=== PATIENT | female | born 1960 | race Asian ===

== ENCOUNTER → 2020-06-17 12:26 | Outpatient (BNVA) | payer SELFPAY | PROVIDERS: Visit Provider Nurse Practitioner Family | DX: R39.9 Unspecified symptoms and signs involving the genitourinary system (principal); K29.70 Gastritis, unspecified, without bleeding | CPT/HCPCS: 81000 ==

== ENCOUNTER → 2020-07-16 14:27 | Outpatient (BNVA) | payer SELFPAY | PROVIDERS: Visit Provider Emergency Medicine | DX: R10.9 Unspecified abdominal pain (principal) | CPT/HCPCS: 81000 ==

== ENCOUNTER → 2023-06-02 13:44 | Outpatient (BNVA) | payer BC, MEDICAID, SELFPAY | PROVIDERS: Visit Provider Nurse Practitioner | DX: R53.83 Other fatigue (principal); R10.9 Unspecified abdominal pain; N63.20 Unspecified lump in the left breast, unspecified quadrant; Z12.11 Encounter for screening for malignant neoplasm of colon; N39.0 Urinary tract infection, site not specified | CPT/HCPCS: 80053; 81000; 82274; 83036; 84443; 85025; 87086 ==

== ENCOUNTER 2023-06-10 08:37 | Outpatient (CLI) | payer BC, MEDICAID, SELFPAY ==
--- NOTE | 2023-06-10 09:00 | USR_ITS ---
PROCEDURE INFORMATION: Exam: US Duplex Artery or Vein of the Abdominal and/or Reproductive Organs, Limited Liver Exam date and time: 06/10/2023 8:46 AM Clinical indication: Abdominal pain; Generalized; Additional info: R10.9 - unspecified abdominal pain TECHNIQUE: Imaging protocol: Real-time duplex ultrasound scan of the arterial or venous flow with color Doppler flow and spectral waveform analysis with image documentation. Limited Duplex exam focused on the liver and portal venous system. Duplex exam was performed to evaluate for vascular conditions. COMPARISON: No relevant prior studies available. FINDINGS: Portal venous: The portal vein is patent with hepatopetal flow. Spectral waveform demonstrates normal respiratory phasicity. PROCEDURE INFORMATION: Exam: US Abdomen Complete Exam date and time: 06/10/2023 8:46 AM Age: 63 years old Clinical indication: Abdominal pain; Generalized; Additional info: R10.9 - unspecified abdominal pain TECHNIQUE: Imaging protocol: Real-time ultrasound of the abdomen with image documentation. Complete exam. COMPARISON: No relevant prior studies available. FINDINGS: Liver: Normal. No mass. Gallbladder: Normal. No gallstones. There is no gallbladder wall thickening. Biliary ducts: Common bile duct measures 5 mm. No stones. No dilation. Pancreas: Visualized pancreas is unremarkable. Right kidney: Measures 10.1 cm in length. No mass. No hydronephrosis. Left kidney: Measures 10.1 cm in length. No mass. No hydronephrosis. Spleen: Normal. No splenomegaly. Aorta: Normal. No aneurysm. Inferior vena cava: Normal. US/US abdomen complete* [id number] IMPRESSION: Unremarkable duplex of the portal vein. IMPRESSION: No acute findings.
== END 2023-06-10 08:38 | disposition home or self-care (01) ==
LOC: RAD 08:37
PROVIDERS: PCP Nurse Practitioner; Visit Provider Nurse Practitioner
DX: R10.9 Unspecified abdominal pain (principal)
CPT/HCPCS: 76700

== ENCOUNTER 2023-06-22 12:51 | Outpatient (CLI) | payer BC, MEDICAID, SELFPAY ==
--- NOTE | 2023-06-22 13:00 | MM_ITS ---
WS: [id number] DIAGNOSTIC BILATERAL DIGITAL BREAST TOMOSYNTHESIS MAMMOGRAPHY WITH CAD LEFT breast ultrasound, limited. HISTORY: N63.20 - Unspecified lump in the left breast, unspecified... COMPARISON: None available. TECHNIQUE: Bilateral craniocaudad, mediolateral oblique, and mediolateral views are submitted with to mosynthesis and SM. Spot compression LEFT CC and MLO. Computer aided detection utilized. Breast composition: The breasts are heterogeneously dense, which may obscure small masses. There is n o underlying abnormality in the region of the palpable marker RIGHT breast. There is mild increased s oft tissue surrounding the nipple. This will be further evaluated by ultrasound. No suspicious calcif ications. LEFT breast ultrasound, limited. No soft tissue masses are identified at the site of the palpable abnormality or around the areola. MM/[place] [id number] IMPRESSION: BI-RADS: 2-Benign FOLLOW UP: 1 Year Follow-up No mammographic or ultrasound abnormality noted within the RIGHT breast.
--- NOTE | 2023-06-22 13:09 | US_ITS ---
WS: [id number] DIAGNOSTIC BILATERAL DIGITAL BREAST TOMOSYNTHESIS MAMMOGRAPHY WITH CAD LEFT breast ultrasound, limited. HISTORY: N63.20 - Unspecified lump in the left breast, unspecified... COMPARISON: None available. TECHNIQUE: Bilateral craniocaudad, mediolateral oblique, and mediolateral views are submitted with to mosynthesis and SM. Spot compression LEFT CC and MLO. Computer aided detection utilized. Breast composition: The breasts are heterogeneously dense, which may obscure small masses. There is n o underlying abnormality in the region of the palpable marker RIGHT breast. There is mild increased s oft tissue surrounding the nipple. This will be further evaluated by ultrasound. No suspicious calcif ications. LEFT breast ultrasound, limited. No soft tissue masses are identified at the site of the palpable abnormality or around the areola. US/US breast LT limited* [id number] IMPRESSION: BI-RADS: 2-Benign FOLLOW UP: 1 Year Follow-up No mammographic or ultrasound abnormality noted within the RIGHT breast.
== END 2023-06-22 12:52 | disposition home or self-care (01) ==
LOC: RAD 12:51
PROVIDERS: PCP Nurse Practitioner; Visit Provider Nurse Practitioner
DX: N63.20 Unspecified lump in the left breast, unspecified quadrant (principal); R92.332 Mammographic heterogeneous density, left breast
CPT/HCPCS: 76642; 77062; G0279

== ENCOUNTER → 2023-07-01 13:10 | Outpatient (BNVA) | payer BC, MEDICAID, SELFPAY | PROVIDERS: PCP Nurse Practitioner; Visit Provider Nurse Practitioner | DX: R07.9 Chest pain, unspecified (principal); N39.0 Urinary tract infection, site not specified; R31.9 Hematuria, unspecified | CPT/HCPCS: 81000; 87086; 93005 ==

== ENCOUNTER 2023-07-28 11:58 | Day surgery (SDC) | payer BC, MEDICAID, SELFPAY ==
[2023-07-28 12:16] VITALS: BP 134/98; PULSE 94; RESP 16; TEMP 36.3; O2SAT 97
[2023-07-28 12:20] VITALS: BMI 17.7
[2023-07-28] MEDS: sodium chloride 0.9% 1,000 ML 30 ML IV (12:30)
--- NOTE | 2023-07-28 13:24 | ANES.PREANE2 ---
Pre-Anesthetic Assessment Height/Weight: Height 1.57 m Weight 43.998 kg Temp Pulse Resp BP Pulse Ox O2 Del Method 97.4 F L 94 16 134/98 97 Room Air 07/28/23 12:16 07/28/23 12:16 07/28/23 12:16 07/28/23 12:16 07/28/23 12:16 07/28/23 12:16 Operation Date: 07/28/23 13:00 Proposed Procedures p EGD 00994, [id number], G0105, Z12.11, R12(Not Applicable) - Ti Gray DO s Colonoscopy(Not Applicable) - Ti Gray DO Familial anesthetic complications: none Was Beta Arely taken within 24 hours: N/A Was Clonidine taken within 24 hours: N/A Last intake: Intake Last Liquid Date 07/27/23 Last Liquid Time 23:00 Last Solid Date 07/26/23 Last Solid Time 12:00 Social No alcohol and No tobacco Exam alert, oriented x 3, clear to auscultation bilaterally and regular rate & rhythm Airway Mallampati: Class I Dentition: full Anesthetic Plan ASA status: 1 Anesthesia: MAC Risk of > 500 ml blood loss (7ml/kg in children): No Medications/Allergies Home Medications Medication Instructions Recorded Confirmed Last Taken Type No Known Home Medications 07/28/23 07/28/23 Unknown History Allergies Allergy/AdvReac Type Severity Reaction Status Date / Time No Known Allergies Allergy Verified 07/28/23 12:11 Current Medications Generic Name Dose Route Start Last Admin Trade Name Freq PRN Reason Stop Dose Admin Sodium Chloride 1,000 mls @ 30 mls/hr 07/28/23 12:15 07/28/23 12:30 Sodium Chloride 0.9% IV 07/29/23 12:14 30 mls/hr .Q24H MADHURI Administration PFSH Anesthesia Social History Smoking and tobacco/nicotine status: never used tobacco/nicotine Second hand smoke exposure: No Alcohol intake: never Data Anesthesia Cardiac Studies: No Data to Display
--- NOTE | 2023-07-28 14:35 | PM.HP ---
Providers/Chief Complaint Primary Care Provider: Jenna Flores APN Chief Complaint: Z12.11, R12 History of Present Illness Heber Gamez is a 63 year old female Review of Systems General: Reports: 10 or more systems reviewed and unremarkable except in HPI and below Medications/Allergies Home Medications Medication Instructions Recorded Confirmed Last Taken Type No Known Home Medications 07/28/23 07/28/23 Unknown History Allergies Allergy/AdvReac Type Severity Reaction Status Date / Time No Known Allergies Allergy Verified 07/28/23 12:11 PFSH Acute PFSH: Social History Smoking and tobacco/nicotine status: never used tobacco/nicotine Second hand smoke exposure: No Alcohol intake: never Vitals/I&O/Wt Last Vital Signs Temp 97.4 F L 07/28/23 12:16 Pulse 94 07/28/23 12:16 Resp 16 07/28/23 12:16 BP 134/98 07/28/23 12:16 Pulse Ox 97 07/28/23 12:16 O2 Del Method Room Air 07/28/23 12:16 Weight last 48 hrs Weight 97 lb A&P Assessment and plan (1) GERD (gastroesophageal reflux disease): (2) Colon cancer screening: Plan EGD and colonoscopy Attestations Medical Necessity Statement*: home Coding Level of Care Code Acute Code for Chg Fwd Diagnoses GERD (gastroesophageal reflux disease) K21.9 Colon cancer screening Z12.11
[2023-07-28 15:08] VITALS: BP 87/47; PULSE 68; RESP 18; TEMP 36.2; O2SAT 95
[2023-07-28 15:17] VITALS: BP 81/51; PULSE 62; RESP 18; O2SAT 99
[2023-07-28 15:23] VITALS: BP 90/48; PULSE 67; RESP 18; O2SAT 99
[2023-07-28 15:49] VITALS: BP 101/63
[2023-07-28 15:55] VITALS: BP 109/71
--- NOTE | 2023-07-28 16:05 | ANE.PACU2 ---
Inpatient post-anesthesia follow up: Airway intact: Yes Vital signs: Temperature 97.1 F Pulse Rate 67 Respiratory Rate 18 Blood Pressure 109/71 Pulse Oximetry 99 Oxygen Delivery Me thod Nasal Cannula Oxygen Flow Rate 3 Fraction of Inspir ed Oxygen Hydration adequate: Yes Nausea and vomiting: No Pain level: 1 Mental status: Baseline
== END 2023-07-28 16:07 | disposition home or self-care (01) ==
PROVIDERS: PCP Nurse Practitioner; Visit Provider Surgery
PROC: 0DJ08ZZ Inspection of Upper Intestinal Tract, Via Natural or Artificial Opening Endoscopic (ICD-10-PCS; CPT 43235; principal; 2023-07-28 13:00)
PROC: 0DJD8ZZ Inspection of Lower Intestinal Tract, Via Natural or Artificial Opening Endoscopic (ICD-10-PCS; CPT 45378; 2023-07-28 13:00)
DX: Z12.11 Encounter for screening for malignant neoplasm of colon (principal); R12 Heartburn; K64.8 Other hemorrhoids
CPT/HCPCS: 43239; 45378; 88305; J2704; J3010; J7030

== ENCOUNTER 2023-08-02 08:57 | Outpatient (CLI) | payer BC, MEDICAID, SELFPAY ==
--- NOTE | 2023-08-02 09:15 | USCV_ITS ---
Heber Gamez Age: 63 Gender: F : 1960 Exam Date: 08/02/2023 09:15 Ordering Phys: Jenna Flores FLAVOR MAKER FLAVOR MAKER Technologist: CT [place] [facility] [place]: cp BP: / HR: Rhythm: Sinus Technical Quality: Adequate MEASUREMENTS (Male / Female) Normal Values FINDINGS Left Ventricle Normal left ventricular size and systolic function, EF 62%. No regional wall motion abnormalities. Right Ventricle The right ventricle is normal in size and function. Right Atrium The right atrium is normal in size. Left Atrium The left atrium is normal in size. Mitral Valve Trace mitral valve regurgitation. Aortic Valve No gross abnormalities noted Tricuspid Valve Trace to mild tricuspid valve regurgitation. Pulmonic Valve Trace pulmonary valve regurgitation. Pericardium Normal pericardium without effusion. Aorta Normal ascending aorta dimension. IVC Normal inferior vena cava. CONCLUSIONS Normal left ventricular size and systolic function, EF 62%. No regional wall motion abnormalities. Trace mitral valve regurgitation. Trace to mild tricuspid valve regurgitation. Trace pulmonary valve regurgitation. Estimated pulmonary artery peak systolic pressure 23 mmHg There is no pericardial effusion. There are no intracardiac masses. No similar previous studies are available for comparison Dr Emmett Alves MD [facility] (Electronically Signed) Final Date: 02 August 2023 23:53 S
== END 2023-08-02 08:58 | disposition home or self-care (01) ==
LOC: RAD 08:58
PROVIDERS: PCP Nurse Practitioner; Visit Provider Nurse Practitioner
DX: R07.9 Chest pain, unspecified (principal); I34.0 Nonrheumatic mitral (valve) insufficiency; I36.1 Nonrheumatic tricuspid (valve) insufficiency; I37.1 Nonrheumatic pulmonary valve insufficiency
CPT/HCPCS: 93306

== ENCOUNTER → 2023-08-24 09:39 | Outpatient (BNVA) | payer BC, MEDICAID, SELFPAY | PROVIDERS: PCP Nurse Practitioner; Visit Provider Nurse Practitioner | DX: R07.89 Other chest pain (principal); K12.1 Other forms of stomatitis; Q89.9 Congenital malformation, unspecified | CPT/HCPCS: 80048 ==

== ENCOUNTER 2023-09-23 07:09 | Outpatient (CLI) | payer BC, MEDICAID, SELFPAY ==
--- NOTE | 2023-09-23 07:15 | US_ITS ---
WS: [id number] Complete ABDOMINAL ULTRASOUND HISTORY: R10.33 - Periumbilical pain COMPARISON: 06/10/2023 Liver: 11.1 cm in length. Normal size liver and echogenicity. No bile duct dilatation or mass. Portal Vein: Normal hepatopetal flow with monophasic waveform. Gallbladder: Normally distended gallbladder with no stones or wall thickening. CBD: 0.4 cm Pancreas: Normal size and echogenicity. Right kidney: 9.3 cm x 4.2 x 3.4 cm. Cortex:1.1 cm. Normal size and echogenicity. No hydronephrosis or mass. Left kidney: 8.9 cm x 3.9 cm x 4.4 cm. Cortex: 1.1 cm. Normal size and echogenicity. No hydronephrosis or mass. Spleen: 7.7 cm. Normal size and echogenicity. No abnormality identified in the periumbilical region. Aorta and IVC: Unremarkable abdominal aorta and IVC. US/US abdomen complete* [id number] Impression: Normal complete abdomen ultrasound.
== END 2023-09-23 07:10 | disposition home or self-care (01) ==
LOC: RAD 07:10
PROVIDERS: PCP Nurse Practitioner; Visit Provider Nurse Practitioner
DX: R10.33 Periumbilical pain (principal)
CPT/HCPCS: 76700; 87070

== ENCOUNTER → 2023-11-16 15:09 | Outpatient (BNVA) | payer BC, MEDICAID, SELFPAY | PROVIDERS: PCP Nurse Practitioner; Visit Provider Nurse Practitioner | DX: R30.0 Dysuria (principal) | CPT/HCPCS: 81000; 87086 ==

== ENCOUNTER → 2023-12-13 10:45 | Outpatient (BNVA) | payer BC, MEDICAID, SELFPAY | PROVIDERS: PCP Nurse Practitioner; Visit Provider Nurse Practitioner | DX: R05.9 Cough, unspecified (principal) | CPT/HCPCS: 71046 ==

== ENCOUNTER → 2024-06-06 13:15 | Outpatient (BNVA) | payer MEDICARE, SELFPAY | PROVIDERS: PCP Nurse Practitioner; Visit Provider Internal Medicine Cardiovascular Disease | DX: R00.2 Palpitations (principal); I08.1 Rheumatic disorders of both mitral and tricuspid valves | CPT/HCPCS: 93005; 99204 ==

== ENCOUNTER → 2024-09-21 09:09 | Outpatient (BNVA) | payer MEDICARE, MEDICAID, SELFPAY | PROVIDERS: PCP Nurse Practitioner; Visit Provider Nurse Practitioner Family | DX: L60.8 Other nail disorders (principal); D23.71 Other benign neoplasm of skin of right lower limb, including hip; L82.1 Other seborrheic keratosis; Z12.83 Encounter for screening for malignant neoplasm of skin | CPT/HCPCS: 99213 ==